=== PATIENT | female | born 1965 | race Caucasian/White ===

== ENCOUNTER 2021-04-24 10:26 | Emergency (ER) | payer OTHER ==
[2021-04-24 10:59] VITALS: BP 111/78; PULSE 84; TEMP 97.9; BMI 25.0
== END 2021-04-24 14:34 | disposition home or self-care (01) ==
LOC: JERFT 10:26
DX: S09.90XA Unspecified injury of head, initial encounter (principal); S70.01XA Contusion of right hip, initial encounter; S50.02XA Contusion of left elbow, initial encounter; W22.8XXA Striking against or struck by other objects, initial encounter
CPT/HCPCS: 70450-TC; 72170-TC-FY; 73502-TC-RT-FY; 99284-25